=== PATIENT | female | born 1950 | race Caucasian/White ===

== ENCOUNTER 2016-12-22 10:52 | Outpatient (CLI) | payer OTHER ==
[2016-05-08 08:50] VITALS: BMI 34.7
--- NOTE | 2016-12-22 12:39 | DI ---
EXAM: Pelvis one-view HISTORY: Myalgia, fall COMPARISON: None TECHNIQUE: Single view pelvis was performed FINDINGS: Sacroiliac joints intact. Sacral arcuate lines intact. Degenerative change in the spine . Hip joints are normal. No fracture or dislocation visualized IMPRESSION: No fracture or dislocation visualized.
== END 2016-12-22 10:53 | disposition home or self-care (01) ==
LOC: RAD 10:52
PROVIDERS: ATTEND Emergency Medicine
DX: M79.1 Myalgia (principal); W19.XXXA Unspecified fall, initial encounter

== ENCOUNTER 2017-01-03 09:57 | Outpatient (CLI) | payer OTHER ==
[2016-05-08 08:50] VITALS: BMI 34.7
--- NOTE | 2017-01-03 14:06 | MRI ---
EXAM: MRI lumbar spine without IV contrast. DATE: 01/03/2017. HISTORY: Sciatica. Low back pain since fall 2 weeks ago. TECHNIQUE: Sagittal and axial T1W and T2W sequences of the lumbar spine along with sagittal IR and coronal T2W sequences were obtained using 1.2 Brittaney magnet. No IV contrast. COMPARISON: CT abdomen/pelvis 08 May 2016. PA/lateral chest 03/06/2012. FINDINGS: There are five [id number] lumbar vertebra. A 5 mm anterior subluxation of L4 relati ve to L5 and 2.2 mm anterolisthesis of S1 relative to L5 are due to facet disease. No other subluxa tion, acute fracture, osseous malignancy, or pars interarticularis defect is demonstrated. Lumbar v ertebra are normal in height. Tiny anterior osteophytes are seen at several lumbar levels. T2W/T1W bone marrow signal there is but limited views due to areas of fatty infiltration. Mild disc space narrowing is evident at L4-5. Remaining lumbar intervertebral discs are normal in height. No sacra l fracture or stress reaction is apparent. SI joints are unremarkable. Conus medullaris terminates at L2. Visible spinal cord is normal. No retroperitoneal lymphadenopathy is present although there are several small retroperitoneal nodes . Atherosclerotic plaques are present within the aortic wall. No aortic aneurysm or dissection is seen. Psoas muscles are normal. There is minor bilateral posterior paraspinal muscle atrophy. Vis ible portions of the liver, spleen, gallbladder, pancreas, adrenal glands, and kidneys reveal no dis tinct malignancy. Previously identified adenoma in the left adrenal gland is not well visualized on the current MRI. A 4.3 x 10 mm nodule at the lateral limb left adrenal gland appears similar to Oc tober 2016 CT scan.. Segmental analysis: T11-12: Normal. T12-L1: Normal. L1-2: Normal. L2-3: Small concentric disc bulge and minor facet arthropathy cause mild bilateral foraminal narrow ing. No central canal stenosis. L3-4: Small concentric disc bulge, mild bilateral facet arthropathy, mild ligamentum flavum hypertr ophy cause mild central canal stenosis, mild/moderate narrowing at the right foraminal opening, and minor left foraminal stenosis. L4-5: Mild anterior subluxation of L4, small concentric disc bulge, marked bilateral facet arthropa thy, and moderate ligamentum flavum hypertrophy cause marked central canal stenosis, mild right fora isa stenosis, and moderate to left foraminal stenosis. Each L4 nerve root contacts the disc bulge in the foramen. L5-S1: Small concentric disc bulge, mild right facet arthropathy, mild/moderate left facet arthropa thy and mild ligamentum flavum hypertrophy cause slight bilateral foraminal narrowing. No central c anal stenosis. Each L5 nerve root contacts the disc bulge near the lateral margin of the foramen. IMPRESSIONS: 1. Lumbar spine minor leftward curvature, multilevel facet arthropathy (especially L4-5), L4-5 and L5-S1 subluxations due to facet disease, and multilevel DDD. 2. Mild central canal stenosis at L3-4. Marked central stenosis at L4-5. 3. Multilevel foraminal stenoses. Each L5 nerve root contacts the disc bulge near the foramen, and could be sources for pain/radiculopathy. 4. Mild spinous process arthritis at L4-5. 5. Abdominal aortic atherosclerosis. 6. Possible small left adrenal adenoma.
--- NOTE | 2017-01-05 07:29 | MAMMO ---
EXAM: Digital screening mammogram HISTORY: Screening mammogram in COMPARISON: Mammogram 11/19/2014 and 05/16/2013 FINDINGS: Bilateral CC and MLO views of the breasts were performed digitally and demonstrate fatty breast density (up to 25%). There is no abnormal nodule or calcification. There is no significant i nterval change. IMPRESSION: No new or suspicious calcification or nodule RECOMMENDATION: Annual screening mammogram BIRADS category I: Negative
== END 2017-01-03 09:58 | disposition home or self-care (01) ==
LOC: RAD 09:57
PROVIDERS: ATTEND Emergency Medicine
DX: Z12.31 Encounter for screening mammogram for malignant neoplasm of breast (principal); M47.26 Other spondylosis with radiculopathy, lumbar region; M54.30 Sciatica, unspecified side

== ENCOUNTER 2017-03-16 09:27 | Outpatient (CLI) ==
[2016-05-08 08:50] VITALS: BMI 34.7
[2017-03-16 09:47] LABS: BASOPHILS % (AUTO) 0.7 % (0.0-3.0); EOSINOPHILS # (AUTO) 0.2 K/ul (0.0-0.7); EOSINOPHILS % (AUTO) 3.9 % (0.0-7.0); HEMATOCRIT 36.1 % (37.0-47.0); HEMOGLOBIN 12.5 g/dl (12.0-16.0); IMMATURE GRANULOCYTE % (AUTO) 0.4 % (0.0-5.0); LYMPHOCYTES # (AUTO) 2.2 K/uL (0.60-3.4); LYMPHOCYTES % (AUTO) 41.5 (10.0-50.0); MEAN CORPUSCULAR HEMOGLOBIN 33.7 pg (27.0-31.0); MEAN CORPUSCULAR HGB CONC 34.6 (31.8-35.4); MEAN CORPUSCULAR VOLUME 97.3 fl (81.0-99.0); MONOCYTES # (AUTO) 0.6 K/uL (0.4-2.0); MONOCYTES % (AUTO) 10.2 (0-10); NEUTROPHILS # (AUTO) 2.3 K/ul (2.0-6.9); NEUTROPHILS % (AUTO) 43.3; PLATELET COUNT 145 10^3/uL (140-440); RED BLOOD COUNT 3.71 10^6/ul (4.20-5.40)
[2017-03-16 10:25] LABS: ALBUMIN 3.7 g/dL (3.4-5.0); ALBUMIN/GLOBULIN RATIO 0.95; ANION GAP 18.3; BILIRUBIN,TOTAL 0.52 mg/dL (0.00-1.20); BUN/CREATININE RATIO 21.35; CALCIUM 10.1 mg/dL (8.2-10.2); CREATININE 1.03 mg/dL (0.60-1.30); POTASSIUM 4.3 mmol/L (3.5-5.10); TOTAL PROTEIN 7.6 g/dL (5.8-8.1)
== END 2017-03-16 09:28 | disposition home or self-care (01) ==
LOC: LAB 09:27
PROVIDERS: ATTEND Emergency Medicine
DX: E10.9 Type 1 diabetes mellitus without complications (principal); I10 Essential (primary) hypertension
CPT/HCPCS: 36415; 80053; 80061; 83036; 84443; 85025

== ENCOUNTER 2017-09-27 15:16 | Outpatient (CLI) ==
[2016-05-08 08:50] VITALS: BMI 34.7
== END 2017-09-27 15:17 | disposition home or self-care (01) ==
LOC: LAB 15:16
PROVIDERS: ATTEND Emergency Medicine
DX: K76.0 Fatty (change of) liver, not elsewhere classified (principal); I10 Essential (primary) hypertension; E10.9 Type 1 diabetes mellitus without complications
CPT/HCPCS: 36415; 80053; 80061; 84443; 85025

== ENCOUNTER 2017-12-06 13:01 | Emergency (ER) | payer OTHER ==
[2017-12-06 13:07] VITALS: BP 163/92; TEMP 98.5; BMI 32.9
--- NOTE | 2017-12-06 14:09 | ED.PDOC ---
General ED Provider: Dr. JAREK GARCIA Chief Complaint: Back Pain Stated Complaint: Severe Low Back pain. Known history of low back pain and degenerative disc disease. Was out mowing the yard on Tuesday afterwhich time she developed sudden onset of Low back pain with radicular pain into Lt Posterior hip-thigh, knee into calf. Denies other paresthesias or leg weakness. Known hx of Kidney and Liver disease and unable to take many meds. Time Seen by Physician: 13:40 Mode of Arrival: Walk-In Information Source: Patient Exam Limitations: No limitations [facility] Nursing and Triage Documentation Reviewed and Agree: Yes Reviewed sepsis parameters & appropriate labs ordered?: Yes System Inflammatory Response Syndrome: Not Applicable Sepsis Protocol: For patient's 13 years and over: Temp is 96.8 and below OR 101 and greater Pulse >90 BPM Resp >20/minute Acutely Altered Mental Status Are patient's symptoms suggestive of a new infection, such as: -Pneumonia -Skin, Soft Tissue -Endocarditis -UTI -Bone, Joint Infection -Implantable Device -Acute Abdominal Infection -Wound Infection -Meningitis -Blood Stream Catheter Infection -Unknown System Inflammatory Response Syndrome: Not Applicable Musculoskeletal Complaint Exam - Back Pain Complaint/Exam Mechanism of Injury: Reports: No known trauma Symptoms Are: Still present Timing: Constant Episodes Lasting: Hours Initial Severity: Severe Current Severity: Moderate Location: Reports: Radiating Character: Reports: Aching, Throbbing, Burning Aggravating: Reports: Movements, Bending, Walking Alleviating: Reports: Rest, Position Associated Signs and Symptoms: Reports: Pain with weight bearing. Denies: Swelling, Redness, Bruising, Fever, Weakness, Numbness, Tingling, Abdominal pain , Flank pain, Bladder incontinence, Bowel incontinence, Weight loss Related History: Reports: Similar episode TAD Risk Factors: Reports: None AAA Risk Factors: Reports: None Cauda Equina Risk Factors: Reports: None Epidural Abcess Risk Factors: Reports: None Related Surgical History: Reports: None Focal Tenderness: Yes (Lt L5-S 1) Paraspinal Muscle Tenderness: No Paraspinal Muscle Spasm: No Scoliosis: No Lordosis: No Kyphosis: No SLR Test: Right Negative Hip Motion Testing Pain: Left Negative Focal Weakness: Present: None Focal Sensory Loss: Present: None Gait: Present: Normal (antalgic Lt side) Differential Diagnoses: Herniated Disk, Strain, Sprain Review of Systems - Review Of Systems Constitutional: Reports: No symptoms Eyes: Reports: No symptoms Ears, Nose, Mouth, Throat: Reports: No symptoms Respiratory: Reports: No symptoms Cardiac: Reports: No symptoms GI: Reports: No symptoms : Reports: No symptoms Musculoskeletal: Reports: Back pain, Joint pain, Muscle pain Skin: Reports: No symptoms Neurological: Reports: No symptoms Endocrine: Reports: No symptoms Hematologic/Lymphatic: Reports: No symptoms All Other Systems: Reviewed and Negative Past Medical History - Past Medical History Endocrine: Reports: DM 2 Cardiovascular: Reports: None Respiratory: Reports: None Hematological: Reports: None Gastrointestinal: Reports: None Genitourinary: Reports: CKD Neuro/Psych: Reports: None Musculoskeletal: Reports: None Cancer: Reports: None Last Menstrual Period: none - Surgical History General Surgical History: Reports: None (tubal 37 years ago), Tubal ligation - Family History Family History: Reports: None - Social History Smoking Status: Never smoker Hx Substance Use: No Alcohol Screening: None Physical Exam - Physical Exam Appearance: Well-appearing Ill-appearing: None Pain Distress: Moderate Eyes: YLSSA, EOMI, Conjunctiva clear ENT: Ears normal, Nose normal, Oropharynx normal Respiratory: Airway patent, Breath sounds clear, Breath sounds equal, Respirations nonlabored Cardiovascular: RRR, Pulses normal, No rub, No murmur GI/: Soft, Nontender, No masses, Bowel sounds normal, No Organomegaly Musculoskeletal: ROM intact, No edema, Limited ROM (Reduced lumbar flexion- moderate tenderness to palpation Lt L-S spinal region . Neg SLR) Neurological: Sensation intact, Motor intact, Reflexes intact, Cranial nerves intact, Alert, Oriented Psychiatric: Affect appropriate, Mood appropriate Re-Evaluation - Re-Evaluation Time of Re-Evaluation: 15:40 (Requesting meds for pain ) Vital Signs Stable: Yes Pain Level: 7/10 Appearance: NAD Lungs: Clear Skin: Warm and Dry Neuro: Alert and Oriented X3 CV: RRR Additional Comments: States can tolerate Lortabs which helps with the pain; Critical Care Note - Critical Care Note Total Time (mins): 0 Course - Course Hematology/Chemistry: 12/06/17 14:15 12/06/17 14:15 Orders, Labs, Meds: Lab Review 12/06/17 12/06/17 14:15 14:15 WBC 9.39 RBC 3.91 L Hgb 13.0 Hct 38.5 MCV 98.5 MCH 33.2 H MCHC 33.8 RDW Coeff of Deya 13.2 Plt Count 179 Immature Gran % (Auto) 0.3 Neut % (Auto) 55.7 Lymph % (Auto) 29.0 [place] % (Auto) 11.5 H Eos % (Auto) 2.9 Baso % (Auto) 0.6 Immature Gran # (Auto) 0.0 Neut # (Auto) 5.2 Lymph # (Auto) 2.7 [place] # (Auto) 1.1 Eos # (Auto) 0.3 Baso # (Auto) 0.1 Sodium 141 Potassium 3.7 Chloride 103 Carbon Dioxide 25 Anion Gap 16.7 BUN 27 H Creatinine 1.16 Estimated GFR (MDRD) 46.00 BUN/Creatinine Ratio 23.27 Glucose 166 H Calcium 10.0 Total Bilirubin 0.6 AST 41 H ALT 78 Alkaline Phosphatase 72 Total Creatine Kinase 48 Total Protein 7.8 Albumin 3.6 Globulin 4.2 Albumin/Globulin Ratio 0.86 Orders Category Date Time Status CBC W/ AUTO DIFF Stat LAB 12/06/17 14:15 Completed CMP [COMPREHENSIVE METABOLIC PANEL] Stat LAB 12/06/17 14:15 Completed CPK [CREATINE KINASE] Stat LAB 12/06/17 14:15 Completed Hydrocodone Bit/Acetaminophen [[place] 10-325] MEDS 12/06/17 15:43 Stat 1 tab PO ONCE STA CT LUMBAR SPINE W/O CONTRAST Stat RADS 12/06/17 14:11 Completed Medications Discontinued Medications Generic Name Dose Route Start Last Admin Trade Name Freq PRN Reason Stop Dose Admin Hydrocodone Bitart/Acetaminophen 1 tab 12/06/17 15:43 [place] 10-325 PO 12/06/17 15:44 ONCE STA Vital Signs: Temp Pulse Resp BP Pulse Ox 12/06/17 13:02 98.5 F 66 18 163/92 H 94 L Departure - Departure Time of Disposition: 15:50 Disposition: HOME SELF-CARE Discharge Problem: Low back pain potentially associated with radiculopathy Instructions: Lumbar Radiculopathy (ED), Degenerative Disc Disease (ED) Condition: Fair Pt referred to PMD for follow-up: Yes (See PCP) IPMP verified?: No Additional Instructions: Take meds as directed Make follow up apt with your spine surgeon AVOID strenuous activities(Lifting, 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 patient states it makes her nauseous Sulfa (Sulfonamide Antibiotics) Allergy (Severe, Verified 12/06/17 13:07) nausea and headache Home Medications: Ambulatory Orders Cinnamon Bark [Cinnamon] 2 cap PO DAILY 09/17/14 Vitamin E 1 tab PO BID 09/17/14 Hydrocodone/Acetaminophen [[place] 5-325 Tablet] 1 - 2 each PO Q6HR #20 tablet Disposition Discussed With: Patient, Family (Take meds as directed. Follow up apt with [facility]) Additional Information: In discussing pain med therapy/States is only sensitive to percocet if takes on empty stomach. Lab reviewed with patient. GFR Decreased/
--- NOTE | 2017-12-06 15:23 | CT ---
EXAM: CT lumbar spine without contrast. HISTORY: Severe low back pain radiating to the left leg. COMPARISON: 01/03/2017. TECHNIQUE: Multiple axial images of the lumbar spine were obtained without intravenous contrast. Im ages were reformatted in the sagittal and coronal planes. FINDINGS: There is approximately 0.5 cm anterolisthesis of L4 on L5 with moderate disc space narrowi ng at this level. Alignment is otherwise normal. Disc heights are otherwise normal. Vertebral body heights are maintained without fracture. Paravertebral soft tissues without acute abnormality. Ath erosclerotic calcifications present. T12-L1: No neural compromise. L1-2: Facet arthropathy with mild left neural foraminal narrowing. L2-3: Broad-based disc bulge and facet arthropathy with flattening of the ventral thecal sac and mil d right neural foraminal narrowing. L3-4: Disc osteophyte formation and facet arthropathy with flattening of the ventral thecal sac and mild neural foraminal narrowing. L4-5: Anterolisthesis along with disc osteophyte formation and facet arthropathy with severe spinal stenosis and moderate, left greater than right, neural foraminal narrowing. L5-S1: Disc osteophyte formation and facet arthropathy with mild right and moderate left neural fora isa narrowing. Since the prior study, findings are probably unchanged IMPRESSION: 1. No fracture. 2. Stable degenerative changes, severe at L4-5.
[2017-12-06] MEDS ORDERED: NORCO 10-325 PO STA (15:43)
== END 2017-12-06 16:12 | disposition home or self-care (01) ==
LOC: ED 13:01
DX: M54.5 Low back pain (principal); E11.9 Type 2 diabetes mellitus without complications; N18.9 Chronic kidney disease, unspecified
CPT/HCPCS: 36415; 80053; 82550; 85025; 99282

== ENCOUNTER 2018-01-17 12:23 | Outpatient (CLI) | payer OTHER | END 2018-01-17 12:24 | disposition home or self-care (01) | LOC: RHC-LAB 12:23 | PROVIDERS: ATTEND Emergency Medicine | DX: E10.9 Type 1 diabetes mellitus without complications (principal); E78.5 Hyperlipidemia, unspecified; I10 Essential (primary) hypertension | CPT/HCPCS: 36415; 80061; 84443 ==

== ENCOUNTER 2018-01-23 06:55 | Day surgery (SDC) ==
[2018-01-23] MEDS: TETRACAINE 0.5% UNIT-DOSE OP PRN ×3 (07:10→08:19)
[2018-01-23] MEDS: CYCLOGYL 2% OPTH OP PRN ×3 (07:10→07:21)
[2018-01-23] MEDS: OCUFEN 0.03% OPTH SOL OP PRN ×2 (07:11→07:26)
[2018-01-23] MEDS: AK-DILATE 10% OPTH SOL OP PRN ×3 (07:11→07:21)
[2018-01-23 08:05] VITALS: TEMP 98.6
[2018-01-23] MEDS ORDERED: DIAMOX PO STA (08:14)
[2018-01-23] MEDS ORDERED: BETADINE OPTH PREP OP ONE (08:14)
[2018-01-23] MEDS ORDERED: LIDOCAINE 1% 20 ML MDV ID STA (08:14)
[2018-01-23] MEDS ORDERED: VERSED ONE (08:15)
[2018-01-23] MEDS ORDERED: BSS WITH EPINEPHRINE OP ONE (08:37)
[2018-01-23] MEDS ORDERED: LIDOCAINE HCL 1% SDV INJ PRN (08:37)
[2018-01-23] MEDS ORDERED: DIAMOX ONE (09:10)
--- NOTE | 2018-01-24 09:36 | OP ---
PREOPERATIVE DIAGNOSIS: ADVANCED NUCLEAR SCLEROTIC CORTICAL CATARACT, LEFT EYE. POSTOPERATIVE DIAGNOSIS: SAME. OPERATION PHACOEMULSIFICATION ASPIRATION OF CATARACT LEFT EYE. PLACEMENT OF POSTERIOR CHAMBER LENS. PHACO TIME 51.5 SECONDS AT 4.0% POWER. LENS MODEL TECNIS [id number]. DIOPTER +12.0D. TECHNIQUE: CLEAR CORNEA. ANESTHESIA: TOPICAL ANESTHESIA W/ANESTHESIA MONITORING. OPERATIVE REPORT: Topical anesthesia consisting of Tetracaine was applied to the cornea and Xylocaine Methyl Paraben free of MFP was injected intracamerally into the anterior chamber. The patient was then brought into the operating room , prepped and draped in the usual ophthalmic manner. A lid speculum was placed and the operating microscope was used. A paracentesis was made at the 3 o' clock position. A clear corneal incision was made just out to the limbus. The anterior chamber was entered just inside the clear cornea. Viscoelastic was injected into the anterior chamber. A capsulotomy was performed with a bent # 27 gauge needle. Phacoemulsification was then performed in the posterior chamber. After completion of the phacoemulsification, residual cortical material was aspirated with the irrigation-aspiration system. The posterior capsule was polished. Viscoelastic was injected into the anterior and posterior chambers to inflate the capsular bag. Lens were placed via an Unfolder system and stabilized in the bag. Viscoelastic was removed from the anterior chamber. The wound was checked for any leakage. The four sponges were removed from the fornix. Topical antibiotic steroid and nonsteroidal drops were also applied to the cornea. A Donnelly shield was applied. The patient left the operating room in good condition without any complications. INTRAOPERATIVE MEDICATIONS: Xylocaine Methyl Paraben Free MPF MTDD
[2018-01-26 11:36] VITALS: BP 128/59
== END 2018-01-23 09:15 | disposition home or self-care (01) ==
LOC: SURG 06:55
PROVIDERS: ATTEND Ophthalmology
DX: H25.13 Age-related nuclear cataract, bilateral (principal); H25.013 Cortical age-related cataract, bilateral

== ENCOUNTER 2018-03-31 12:07 | Outpatient (CLI) | payer OTHER | END 2018-03-31 12:08 | disposition home or self-care (01) | LOC: FCC-LAB 12:07 | PROVIDERS: ATTEND Nurse Practitioner Family | DX: E10.9 Type 1 diabetes mellitus without complications (principal) | CPT/HCPCS: 36415; 83037 ==

== ENCOUNTER 2018-04-19 08:57 | Outpatient (CLI) | payer OTHER ==
[2018-04-13 16:18] VITALS: BMI 33.5
--- NOTE | 2018-04-19 10:38 | MAMMO ---
EXAM: Digital screening mammogram with tomosynthesis HISTORY: Screening COMPARISON: 01/03/2017 FINDINGS: Digital MLO and CC views of the right and left breast were performed. Tomosynthesis was performed. Computer aided detection utilized. There are scattered fibroglandular densities. There a re benign bilateral calcifications. There is no evidence for mass, asymmetry, distortion, or suspicio us calcifications in either breast. IMPRESSION: 1. No evidence of malignancy in the right or left breast. 2. Annual screening mammogram is recommended in one year. BIRADS category 2, benign
--- NOTE | 2018-04-19 11:03 | US ---
Exam: Johnson-scale and color ultrasonographic evaluation of the thyroid. Comparison: None available. Reason for exam: Nontoxic thyroid nodule. FINDINGS: There are multiple complex appearing nodules seen throughout the left and right thyroid lo be and isthmus. The right thyroid lobe measures approximately 5.0 x 2.1 x 1.8 cm. The largest nodule in the right thyroid lobe measures approximately 1.2 x 0.9 x 1.1 cm in the right i nferior thyroid lobe with a complex appearing echotexture. The isthmus measures 0.48 cm The left thyroid lobe measures approximately 4.7 x 1.8 x 1.6 cm. The largest nodule in the left thyroid lobe measures approximately 2.3 x 1.3 x 1.5 cm with a complex appearing echotexture. Impression: Multiple nodules are seen throughout the left and right thyroid lobe and isthmus. The largest nodule measures 2.3 cm in the left superior lobe and meets radiographic size criteria for fine-needle aspir ation. Consider endocrine consultation, fine-needle aspiration, and short term interval follow up imaging to document stability
== END 2018-04-19 08:58 | disposition home or self-care (01) ==
LOC: RAD 08:57
PROVIDERS: ATTEND Nurse Practitioner Family
DX: Z12.31 Encounter for screening mammogram for malignant neoplasm of breast (principal); E04.1 Nontoxic single thyroid nodule
CPT/HCPCS: 77067

== ENCOUNTER 2018-07-22 12:27 | Emergency (ER) | payer OTHER ==
[2018-07-22 12:29] VITALS: BP 146/85; TEMP 97.2; BMI 32.7
[2018-07-22] MEDS ORDERED: TORADOL IM STA (12:55)
--- NOTE | 2018-07-22 13:28 | ED.PDOC ---
General ED Provider: Dr. DEANA PATEL Chief Complaint: Knee Pain/Injury Stated Complaint: Patient complains of left knee pain for one month. State that she was told she had arthritis. Time Seen by Physician: 12:40 Mode of Arrival: Walk-In Information Source: Patient Exam Limitations: No limitations Primary Care Provider: NAY SYKES Nursing and Triage Documentation Reviewed and Agree: Yes Does patient meet sepsis criteria?: No System Inflammatory Response Syndrome: Not Applicable Sepsis Protocol: For patient's 13 years and over: Temp is 96.8 and below OR 101 and greater Pulse >90 BPM Resp >20/minute Acutely Altered Mental Status Are patient's symptoms suggestive of a new infection, such as: -Pneumonia -Skin, Soft Tissue -Endocarditis -UTI -Bone, Joint Infection -Implantable Device -Acute Abdominal Infection -Wound Infection -Meningitis -Blood Stream Catheter Infection -Unknown Review of Systems - Review Of Systems Constitutional: Reports: No symptoms Eyes: Reports: No symptoms Ears, Nose, Mouth, Throat: Reports: No symptoms Respiratory: Reports: No symptoms Cardiac: Reports: No symptoms GI: Reports: No symptoms : Reports: No symptoms Musculoskeletal: Reports: Joint pain Skin: Reports: No symptoms Neurological: Reports: No symptoms Endocrine: Reports: No symptoms Hematologic/Lymphatic: Reports: No symptoms All Other Systems: Reviewed and Negative Past Medical History - Past Medical History Endocrine: Reports: DM 2 Cardiovascular: Reports: None Respiratory: Reports: None Hematological: Reports: None Gastrointestinal: Reports: None Genitourinary: Reports: CKD Neuro/Psych: Reports: None Musculoskeletal: Reports: None Cancer: Reports: None Last Menstrual Period: N/A - Surgical History General Surgical History: Reports: None (tubal 37 years ago), Tubal ligation - Family History Family History: Reports: None - Social History Smoking Status: Never smoker Hx Substance Use: No Alcohol Screening: None Physical Exam - Physical Exam Appearance: Obese Pain Distress: Moderate Respiratory: Airway patent, Breath sounds clear, Breath sounds equal, Respirations nonlabored GI/: Soft, Nontender, No masses, Bowel sounds normal, No Organomegaly Musculoskeletal: Limited ROM Skin: Warm, Dry Interpretation - Radiology Interpretation Radiology Interpretation By: ED Physician Radiology Results: Negative Exam Interpreted: Other (Left Knee ) Critical Care Note - Critical Care Note Total Time (mins): 0 Course - Course Hematology/Chemistry: 07/22/18 13:40 07/22/18 13:40 Orders, Labs, Meds: Lab Review 07/22/18 07/22/18 07/22/18 13:40 13:40 13:40 WBC 7.48 RBC 4.20 Hgb 13.9 Hct 41.4 MCV 98.6 MCH 33.1 H MCHC 33.6 RDW Coeff of Deya 13.2 Plt Count 178 Immature Gran % (Auto) 0.3 Neut % (Auto) 47.3 Lymph % (Auto) 39.3 [place] % (Auto) 10.4 H Eos % (Auto) 2.3 Baso % (Auto) 0.4 Immature Gran # (Auto) 0.0 Neut # (Auto) 3.5 Lymph # (Auto) 2.9 [place] # (Auto) 0.8 Eos # (Auto) 0.2 Baso # (Auto) 0.0 ESR 16 Sodium 139.8 Potassium 3.77 Chloride 101.3 Carbon Dioxide 30.3 H Anion Gap 11.97 BUN 23.9 H Creatinine 0.92 Estimated GFR (MDRD) 60.00 BUN/Creatinine Ratio 25.97 Glucose 115.8 H Uric Acid 4.11 Calcium 9.96 Total Bilirubin 0.41 AST 89.0 H ALT 106.0 H Alkaline Phosphatase 69.6 Total Protein 8.34 H Albumin 4.66 Globulin 3.68 Albumin/Globulin Ratio 1.26 Orders Category Date Time Status REECE [ED REECE WRAP] .ONCE EMERGENCY 07/22/18 14:39 Active CBC W/ AUTO DIFF Stat LAB 07/22/18 13:40 Completed COMPREHENSIVE METABOLIC PANEL Stat LAB 07/22/18 13:40 Completed ESR Stat LAB 07/22/18 13:40 Completed URIC ACID Stat LAB 07/22/18 13:40 Completed Ketorolac Tromethamine [Toradol] MEDS 07/22/18 12:55 Discontinued 60 mg IM ONCE STA KNEE, LEFT 4 VIEWS Stat RADS 07/22/18 12:55 Completed Medications Discontinued Medications Generic Name Dose Route Start Last Admin Trade Name Freq PRN Reason Stop Dose Admin Ketorolac Tromethamine 60 mg 07/22/18 12:55 07/22/18 13:15 Toradol IM 07/22/18 12:56 60 mg ONCE STA Administration Vital Signs: Temp Pulse Resp BP Pulse Ox 07/22/18 12:27 97.2 F L 75 18 146/85 H 75 L Departure - Departure Time of Disposition: 14:36 Disposition: HOME SELF-CARE Discharge Problem: Knee pain Instructions: Knee Pain (ED), Arthralgia (ED) Condition: Stable Pt referred to PMD for follow-up: Yes IPMP verified?: No Additional Instructions: Follow up with PCP in 3 days Take medications as needed for pain Prescriptions: Meloxicam [Mobic] 7.5 mg PO DAILYWM #20 tablet Tramadol HCl [Ultram] 50 mg PO Q6H PRN #14 tablet PRN Reason: Severe Pain Allergies/Adverse Reactions: Allergies oxycodone HCl [From Percocet] Allergy (Severe, Verified 07/22/18 12:30) breathing problems pt notified to travayl alert ANTs Software. patient states it makes her nauseous Sulfa (Sulfonamide Antibiotics) Allergy (Severe, Verified 07/22/18 12:30) nausea and headache Home Medications: Ambulatory Orders Cinnamon Bark [Cinnamon] 2 cap PO DAILY 09/17/14 Vitamin E 1 tab PO BID 09/17/14 Meloxicam [Mobic] 7.5 mg PO DAILYWM #20 tablet 07/22/18 Tramadol HCl [Ultram] 50 mg PO Q6H PRN #14 tablet 07/22/18 Disposition Discussed With: Patient, Family
--- NOTE | 2018-07-23 05:55 | DI ---
EXAM: Left knee four views HISTORY: Knee pain COMPARISON: None FINDINGS: No fracture or dislocation. Small retropatellar osteophytes. Mild spurring of the tibial spines. The medial, lateral, and patellofemoral compartments are normal in height. No joint effusion . Mild quadriceps and patellar tendon enthesopathy. IMPERSSION: 1. No fracture or dislocation. 2. Mild osteoarthritis.
== END 2018-07-22 14:45 | disposition home or self-care (01) ==
LOC: ED 12:27
DX: M25.562 Pain in left knee (principal); E11.9 Type 2 diabetes mellitus without complications; N18.9 Chronic kidney disease, unspecified
CPT/HCPCS: 36415; 80053; 84550; 85025; 85651; 96372; 99283

== ENCOUNTER 2018-12-21 12:55 | Outpatient (CLI) | payer OTHER | END 2018-12-21 12:56 | disposition home or self-care (01) | LOC: RHC-LAB 12:55 → FCC-LAB 12:56 | PROVIDERS: ATTEND Family Medicine | DX: E13.9 Other specified diabetes mellitus without complications (principal); E11.69 Type 2 diabetes mellitus with other specified complication | CPT/HCPCS: 36415; 80053; 80061; 83036 ==

== ENCOUNTER 2019-01-08 10:16 | Outpatient (CLI) ==
--- NOTE | 2019-01-08 11:28 | US ---
EXAM: Ultrasound abdomen limited right upper quadrant HISTORY: Nonspecific elevation of levels transaminase COMPARISON: None TECHNIQUE: Ultrasound abdomen limited right upper quadrant was performed FINDINGS: Visualized portion pancreas appears normal. Portions of the pancreas obscured secondary b owel gas shadowing. Liver appears enlarged. Liver diffusely increased in echogenicity. Main portal vein patent with direction of flow. No shadowing gallstones. No gallbladder wall thickening. No p ericholecystic fluid. The no biliary duct dilation with common bile duct measuring 0.4 cm. Right ki dney measures 920 cm in length without hydronephrosis. IMPRESSION: 1. Hepatic steatosis. Hepatomegaly. 2. No cholelithiasis. No gallbladder wall thickening.
== END 2019-01-08 10:17 | disposition home or self-care (01) ==
LOC: RAD 10:16
PROVIDERS: ATTEND Family Medicine
DX: R74.0 Nonspecific elevation of levels of transaminase and lactic acid dehydrogenase [LDH] (principal)